=== PATIENT | female | born 1945 | race Two or more races ===

== ENCOUNTER 2017-04-21 12:40 | Emergency (ER) | payer MEDICARE, OTHER ==
[~2017-04-21] VITALS: Ht 157.5 cm; Wt 59.0 kg
[2017-04-21 12:56] VITALS: BP 127/70
[2017-04-21] MEDS ORDERED: IBUPROFEN 400 MG TABLET PO ONE (14:00)
[2017-04-21] MEDS ORDERED: IBUPROFEN 400 MG TABLET ONE (14:15)
== END 2017-04-21 15:51 | disposition home or self-care (01) ==
LOC: ER 12:43
DX: M79.672 Pain in left foot (principal); M87.875 Other osteonecrosis, left foot
CPT/HCPCS: 73610; 73630; 99284; A4606; Z7610